=== PATIENT | female | born 1950 | race Caucasian/White ===

== ENCOUNTER → 2016-07-29 | Outpatient (CLI) | payer MEDICARE ==
[~2016-07-29] MED LIST: ALEN70TA2 PO; AMLO5TAB4 PO; ASP81TEC PO; CALC-80 PO; CARV3.12 PO; FISH1CAP15 PO; OLME1TAB22 PO; ROSU10TA PO; SMV20T PO
--- NOTE | 2016-07-30 09:26 | STRESS TEST ---
PROCEDURE PHYSICIAN: TARIQ RODRIGUEZ EXERCISE STRESS ECHOCARDIOGRAM REPORT DATE OF PROCEDURE: 07/29/2016 REFERRING PHYSICIAN: Dr. Almeida INDICATION FOR THE PROCEDURE: Shortness of breath on exertion Baseline heart rate is 63, baseline blood pressure: 163/78. Baseline EKG: Sinus rhythm with no ischemic changes. SUMMARY: The patient started exercising with a baseline heart rate, blood pressure and EKG mentioned above. She was able to exercise for a total of 5 minutes on standard [place] protocol, achieving maximum heart rate of 155, which is 99% of maximum expected heart rate. With peak exercise level, EKG was showing [address] depression in II, III, aVF, V4 and V5. Returned to baseline during recovery, occasional PVCs noted throughout test. At peak exercise level, blood pressure was 204/92. During recovery, heart rate EKG returned to baseline. Echocardiographic images were acquired and reviewed in the parasternal long axis, parasternal short axis, apical 4 chamber and apical 2 chamber views. Review of the images showed exercise-induced hypokinesia involving the basal to mid inferior wall and inferoposterior wall suggestive of mild ischemia. CONCLUSION: 1. Fair exercise tolerance a total of 5 minutes on standard [place] protocol. Total 7 METs achieving 99% of maximum expected heart rate. 2. Nondiagnostic EKG changes with exercise. Returned to baseline during recovery. 3. Occasional PVCs noted throughout test. 4. Severe hypertensive response to exercise. Returned to baseline during recovery. 5. Mild hypokinesia induced by exercise noted involving the basal to mid inferior wall and inferoposterior wall. 6. Overall test is considered moderately abnormal suggestive of ischemia. Job ID: [id number] Dictated Date: 07/29/2016 17:39:12 [employer] Program Coordinator Date: 07/30/2016 09:19:55 / rox
== END ==
LOC: CARD 13:36
PROVIDERS: ATTEND Internal Medicine Cardiovascular Disease
DX: R06.02 Shortness of breath (principal); I35.1 Nonrheumatic aortic (valve) insufficiency; I10 Essential (primary) hypertension; E78.2 Mixed hyperlipidemia; I27.2 Other secondary pulmonary hypertension; I65.23 Occlusion and stenosis of bilateral carotid arteries; R00.2 Palpitations

== ENCOUNTER 2016-08-19 06:54 | Day surgery (SDC) | payer MEDICARE ==
[~2016-08-19] VITALS: Ht 170.2 cm; Wt 71.7 kg
[2016-08-19] VITALS (10 sets, daily range): BP systolic 101–148; BP diastolic 56–79
[~2016-08-19 06:54] MED LIST changes: -ALEN70TA2 PO; -AMLO5TAB4 PO; -ROSU10TA PO
[2016-08-19] MEDS ORDERED: HEParin (CATH LAB) 2,000 ML IV ONE (07:26)
[2016-08-19] MEDS ORDERED: LIDOCAINE 1% INJ 20 ML (XYLOCAINE) VIAL ONE (07:26)
[2016-08-19] MEDS ORDERED: NS IV 1000 ML 1,000 ML ONE (07:26)
[2016-08-19] MEDS ORDERED: NS IV 1000 ML 1,000 ML IV SCH ×2 (07:37→09:13)
[2016-08-19 07:51] LABS: RED BLOOD COUNT 5.03 10^6/uL (4.35-5.85); RED CELL DISTRIBUTION WIDTH 14.5 % (10.0-14.5); WHITE BLOOD COUNT 7.7 10^3/uL (4.3-11.0)
[2016-08-19 07:53] LABS: BILIRUBIN,URINE NEGATIVE (NEGATIVE); KETONES,URINE NEGATIVE (NEGATIVE); LEUKOCYTE ESTERASE ,URINE 1+ (NEGATIVE); NITRITE,URINE NEGATIVE (NEGATIVE); PH,URINE 5 (5-9); PROTEIN,URINE 1+ (NEGATIVE); UROBILINOGEN,URINE NORMAL (NORMAL)
[2016-08-19] MEDS ORDERED: AMLO5TAB4 PO (07:57)
[2016-08-19] MEDS ORDERED: ROSU10TA PO (07:57)
[2016-08-19] MEDS ORDERED: ALEN70TA2 PO (08:00)
[2016-08-19 08:01] LABS: INR 0.9 (0.8-1.4); PROTHROMBIN TIME PATIENT 12.2 SEC (12.2-14.7)
--- NOTE | 2016-08-19 08:01 | Cardiac Procedure Note-CS/ASA ---
Pre-Procedure Note Pre-Op Procedure Note H&P Reviewed The H&P was reviewed, patient examined and no changes noted. Date H&P Reviewed: Aug 19, 2016 Time H&P Reviewed: 08:01 Conscious Sedation Pre-Proced Time Reviewed: 08: ASA Class: 3 Airway Mallampati Classification: ([place] appropriate class) I. II. III, IV Lungs Heart ASA score ASA 1: a normal healthy patient ASA 2: a patient with a mild systemic disease (mid diabetes, controlled hypertension, obesity x ASA 3: a patient with a severe systemic disease that limits activity (angina , COPD, prior Myocardial infarction) ASA 4: a patient with an incapacitating disease that is a constant threat to life (CHF, renal failure) ASA 5: a moribund patient not expected to survive 24 hrs. (ruptured aneurysm) ASA 6: a declared brain patient whose organs are being harvested. For emergent operations, add the letter E after the classification Grade 3 Sedation Plan: Analgesia, Amnesia, Plan communicated to team members, Discussed options with patient/fam, Discussed risks with patient/fam Note The patient is an appropriate candidate to undergo the planned procedure, sedation, and anesthesia. The patient immediately re-assessed prior to indication. TARIQ RODRIGUEZ MD Aug 19, 2016 08:01
[2016-08-19 08:09] LABS: ALANINE AMINOTRANSFERASE 23 U/L (0-55); ALBUMIN 4.5 G/DL (3.2-4.5); ANION GAP 10 MMOL/L (5-14); ASPARTATE AMINO TRANSFERASE 23 U/L (5-34); BILIRUBIN,TOTAL 0.8 MG/DL (0.1-1.0); BLOOD UREA NITROGEN 17 MG/DL (7-18); BUN/CREATININE RATIO 19; CALCIUM 9.4 MG/DL (8.5-10.1); CARBON DIOXIDE 25 MMOL/L (21-32); CHLORIDE 107 MMOL/L (98-107); CHOLESTEROL 167 MG/DL (< 200); CREATININE SERUM 0.88 MG/DL (0.60-1.30); DIRECT LDL 61 MG/DL (1-129); GFR ESTIMATED > 60; GLUCOSE 101 MG/DL (70-105); POTASSIUM 3.7 MMOL/L (3.6-5.0); SODIUM 142 MMOL/L (135-145); TOTAL PROTEIN 7.4 G/DL (6.4-8.2); TRIGLYCERIDES 69 MG/DL (<150); VLDL CHOLESTEROL 14 MG/DL (5-40)
--- NOTE | 2016-08-19 08:15 | Diagnostic Imaging Report ---
EXAMINATION: Portable erect AP chest obtained at 749h. INDICATION: Preop heart catheter The heart size is within normal limits and stable when compared to 07/07/16. The lungs are clear. There is no sign of failure, pneumonia or a pleural effusion to suggest an acute abnormality. The mediastinum is not widened. The osseous structures are intact. IMPRESSION: There is no evidence for an acute cardiopulmonary abnormality. Dictated by: Dictated on workstation # [id number]
[2016-08-19] MEDS ORDERED: fentaNYL INJECTION 100 MCG/2 ML AMP ONE (08:43)
[2016-08-19] MEDS ORDERED: MIDAZOLAM 5 MG/5 ML (VERSED) VIAL ONE (08:43)
[2016-08-19] MEDS ORDERED: PATIENT MAY USE OWN MEDS, ALL PO SCH (09:15)
--- NOTE | 2016-08-19 09:15 | Discharge Inst-Post CATH ---
Discharge Inst-CATH Post Cardiac Cath D/C Inst Follow Up/Plan Appointment with Dr Ye's office in 2-4 weeks CARDIAC CATH DISCHARGE INSTRUCTIONS *Hold Metformin for 48 hours post heart cath. ACTIVITY * Go Home directly and rest. * Limit activity of the leg (or wrist if it was used) for 7 days including aerobics, swimming, jogging, bicycling, etc. * Restrict stair-climbing for 7 days if possible, if not, climb up with your non -cath leg, then bring together on the same step. * Avoid lifting, pushing, pulling or excessive movement of the affected extremity for 7 days. * Customary sexual activity may be resumed after 2 days-use caution not to use a position that strains or causes pain to the affected extremity. * No driving for 24 hours. * NO SMOKING. * Avoid straining for bowel movements for 7 days. * Gentle walking on level ground is allowed. * Returning to work will depend on the type of procedure and the results. Your doctor will discuss this with you. CALL YOUR DOCTOR FOR ANY OF THE FOLLOWING: *If bleeding from the puncture site occurs- Apply gentle pressure to site with clean cloth and call your doctor or EMS. * If a knot or lump forms under the skin, increases in size, or causes pain. * If bruising appears to be worsening or moving further down your leg instead of disappearing. * Temperature above 101 F. CARE OF YOUR GROIN INCISION; * Bruising or purple discoloration of the skin near the puncture site is common. * You may shower only, no bathtub bathing for 5 days. Be careful to avoid slipping as your leg may feel stiff. * If a closure device was used on your femoral artery, please see the attached guide regarding care of the device and your leg. * REMOVE the dressing from your groin the next day after your procedure in the shower. CARE OF YOUR WRIST INCISION; * Bruising or purple discoloration of the skin near the puncture site is common. * You may shower. * DO NOT submerge wrist. * Remove dressing in 24 hours. TARIQ YE MD Aug 19, 2016 09:15
--- NOTE | 2016-08-19 14:04 | DISCHARGE SUMMARY ---
PROCEDURE PHYSICIAN: TARIQ RODRIGUEZ DATE OF PROCEDURE: 08/19/2016 REFERRING PHYSICIAN: Dr. Almeida BRIEF HISTORY: Mrs. Coyne is a 66-year-old lady with history of hypertension, has an abnormal stress test. She was scheduled for left heart catheterization, possible PTCA. PROCEDURE NOTE: After explaining the procedure to the patient, all pros and cons were explained. All questions were answered. The patient signed a consent, then she was placed on the cardiac catheterization laboratory. The right groin was prepped in a sterile fashion. Local anesthesia applied right groin. 6-Norwegian sheath was placed in the right femoral artery. Combination of right and left Donnie catheter were used to access the right and left coronary system. Multiple views were obtained. Pigtail catheter advanced to the left ventricular cavity. Pressure was measured. No left ventriculogram was done. At the end of the procedure, sheath was removed. Mynx device deployed. Hemostasis achieved. FINDINGS: HEMODYNAMICS: LV pressure 116/14, end-diastolic pressure of 14, aortic pressure 115/49, mean of 77. No significant gradient across the aortic valve. ANATOMY: 1. Left main coronary artery is bifurcating to left anterior descending and left circumflex artery with no obstructive disease. 2. Left anterior descending artery is moderate in size with no significant obstructive disease. Tapered down into smaller artery distally. 3. Left circumflex artery is moderate in size with no obstructive disease. 4. Right coronary artery is dominant artery with mild disease. No significant obstructive disease. 5. No left ventriculogram was done left ventricular end diastolic pressure is normal. CONCLUSION: 1. No significant obstructive coronary artery disease, mild disease in the distal LAD and right coronary artery. 2. Normal left ventricular end diastolic pressure. DISCUSSION AND RECOMMENDATION: Mrs. Coyne's abnormal stress test is probably due to extracardiac attenuation, medical therapy is recommended. FINAL DIAGNOSIS: 1. Hypertension. 2. Coronary artery disease. 3. Hyperlipidemia Job ID: [id number] Dictated Date: 08/19/2016 09:18:51 Development Executive Date: 08/19/2016 14:02:04/rox
== END 2016-08-19 13:52 | disposition home or self-care (01) ==
LOC: CATH 06:54 → SURG 09:37 → CATH 13:52
PROVIDERS: ATTEND Internal Medicine Cardiovascular Disease
DX: R94.39 Abnormal result of other cardiovascular function study (principal); I25.10 Atherosclerotic heart disease of native coronary artery without angina pectoris; I10 Essential (primary) hypertension; E78.5 Hyperlipidemia, unspecified; I27.2 Other secondary pulmonary hypertension; I35.1 Nonrheumatic aortic (valve) insufficiency; I65.23 Occlusion and stenosis of bilateral carotid arteries; Z79.899 Other long term (current) drug therapy
CPT/HCPCS: 36415; 71010; 80053; 80061; 81000; 85027; 85610; 85730; 87081; 93458

== ENCOUNTER → 2016-10-06 | Outpatient (CLI) | payer MEDICARE ==
[~2016-10-06] MED LIST changes: +ALEN70TA2 PO; +AMLO5TAB4 PO; +ROSU10TA PO
--- OUTSIDE RECORDS SUMMARY | 2016-10-06 09:45 | XMS REPORT | Continuity of Care Document ---
Author Author [facility] Organization [facility] Address Unknown Phone Unavailable Allergies Active Description Code Type Severity Reaction Onset Reported/Identified Relationship to Patient Clinical Status Yes No Known Drug Allergies [id number] Drug Allergy Unknown N/ A 08/24/2011 Medications Problems Date Dx Coded Attending Type Code Diagnosis Diagnosed By 12/31/2009 Ot 569.89 12/31/2009 Ot 618.04 12/31/2009 Ot V18.51 12/31/2009 Ot V76.51 10/04/2012 Ot 785.1 PALPITATIONS 10/04/2012 Ot 786.50 CHEST PAIN NOS 07/16/2014 MEHRAN COLLINS Ot 272.4 07/16/2014 MEHRAN COLLINS Ot 401.9 07/16/2014 MEHRAN COLLINS Ot 424.1 09/18/2014 Ot 396.3 09/18/2014 Ot 397.0 09/18/2014 Ot 272.4 09/18/2014 Ot 401.9 09/18/2014 Ot 424.1 09/18/2014 Ot V72.63 09/18/2014 Ot V72.81 09/18/2014 Ot V74.8 09/18/2014 Ot V76.12 09/18/2014 Ot 396.3 09/18/2014 Ot 397.0 09/18/2014 Ot 401.9 09/18/2014 Ot 396.3 09/18/2014 Ot 397.0 09/18/2014 Ot 401.9 09/18/2014 Ot 429.3 09/18/2014 Ot 793.81 09/18/2014 Ot V76.12 09/18/2014 Ot 793.89 09/18/2014 Ot 793.81 09/18/2014 Ot 793.81 09/18/2014 Ot 401.9 09/18/2014 Ot 424.1 09/18/2014 Ot 793.81 09/18/2014 Ot V15.89 09/18/2014 Ot V67.09 09/18/2014 Ot 785.1 09/18/2014 Ot 786.50 09/18/2014 JENNIFER PEREZ, TARIQ Gilbert Ot 272.4 09/18/2014 JENNIFER PEREZ, TARIQ Gilbert Ot 401.9 09/18/2014 JENNIFER PEREZ, TARIQ Gilbert Ot 416.8 09/18/2014 JENNIFER PEREZ, TARIQ Gilbert Ot 424.1 09/18/2014 JENNIFER PEREZ, TARIQ Gilbert Ot 785.1 09/18/2014 PRATIK PEREZ, RIAZ Hernandez Ot V76.12 09/18/2014 MEHRAN COLLINS Ot 272.4 09/18/2014 MEHRAN COLLINS Ot 401.9 09/18/2014 MEHRAN COLLINS Ot 424.1 06/26/2015 Ot 396.3 06/26/2015 Ot 397.0 06/26/2015 Ot 401.9 06/26/2015 Ot 396.3 06/26/2015 Ot 397.0 06/26/2015 Ot 401.9 06/26/2015 Ot 429.3 06/26/2015 Ot 793.81 06/26/2015 Ot V76.12 06/26/2015 Ot 793.89 06/26/2015 Ot 793.81 06/26/2015 Ot 793.81 06/26/2015 Ot 401.9 06/26/2015 Ot 424.1 06/26/2015 Ot 793.81 06/26/2015 Ot V15.89 06/26/2015 Ot V67.09 06/26/2015 Ot 785.1 06/26/2015 Ot 786.50 06/26/2015 JENNIFER PEREZ, TARIQ Gilbert Ot 272.4 06/26/2015 JENNIFER PEREZ, TARIQ Gilbert Ot 401.9 06/26/2015 JENNIFER PEREZ, TARIQ Gilbert Ot 416.8 06/26/2015 JENNIFER PEREZ, TARIQ Gilbert Ot 424.1 06/26/2015 JENNIFER PEREZ, TARIQ Gilbert Ot 785.1 06/26/2015 PRATIK PEREZ, RIAZ R Ot V76.12 06/26/2015 MEHRAN COLLINS Ot 272.4 06/26/2015 MEHRAN COLLINS Ot 401.9 06/26/2015 MEHRAN COLLINS Ot 424.1 06/26/2015 Ot V76.12 07/23/2015 JENNIFER PEREZ, TARIQ Gilbert Ot E78.5 07/23/2015 JENNIFER PEREZ, TARIQ Gilbert Ot I10 07/23/2015 JENNIFER PEREZ, TARIQ Gilbert Ot I35.1 07/29/2015 JENNIFER PEREZ, TARIQ Gilbert Ot E78.5 07/29/2015 JENNIFER PEREZ, TARIQ Gilbert Ot I10 07/29/2015 JENNIFER PEREZ, TARIQ Gilbert Ot I35.1 10/03/2015 Ot 396.3 10/03/2015 Ot 397.0 10/03/2015 Ot 401.9 10/03/2015 Ot 429.3 10/03/2015 Ot 793.81 10/03/2015 Ot V76.12 10/03/2015 Ot 793.89 10/03/2015 Ot 793.81 10/03/2015 Ot 793.81 10/03/2015 Ot 401.9 10/03/2015 Ot 424.1 10/03/2015 Ot 793.81 10/03/2015 Ot V15.89 10/03/2015 Ot V67.09 10/03/2015 Ot 785.1 10/03/2015 Ot 786.50 10/03/2015 JENNIFER PEREZ, TARIQ Gilbert Ot 272.4 10/03/2015 JENNIFER PEREZ, TARIQ Gilbert Ot 401.9 10/03/2015 JENNIFER PEREZ, TARIQ Gilbert Ot 416.8 10/03/2015 JENNIFER PEREZ, TARIQ Gilbert Ot 424.1 10/03/2015 JENNIFER PEREZ, TARIQ Gilbert Ot 785.1 10/03/2015 PRATIK PEREZ, RIAZ Hernandez Ot V76.12 10/03/2015 MEHRAN COLLINS Ot 272.4 10/03/2015 MEHRAN COLLINS Ot 401.9 10/03/2015 MEHRAN COLLINS Ot 424.1 10/03/2015 JENNIFER PEREZ, TARIQ Gilbert Ot E78.5 10/03/2015 JENNIFER PEREZ, TARIQ Gilbert Ot I10 10/03/2015 JENNIFER PEREZ, TARIQ Gilbert Ot I35.1 10/03/2015 Ot V76.12 10/11/2015 PRATIK PEREZ, RIAZ R Ot R92.8 10/29/2015 PRATIK PEREZ, RIAZ R Ot Z12.31 11/06/2015 PRATIK PEREZ, RIAZ R Ot R92.8 11/13/2015 Ot N63 UNSPECIFIED LUMP IN BREAST 11/13/2015 PRATIK PEREZ, RIAZ R Ot R92.8 OTH ABN AND INCONCLUSIVE FINDINGS ON DX 11/21/2015 Ot N63 UNSPECIFIED LUMP IN BREAST 04/10/2016 Ot 793.81 MAMMOGRAPHIC MICROCLACIFICATION 04/10/2016 Ot V76.12 OTH SCREEN MAMMO-MALIGN NEOPLASM OF ALEJANDRA 04/10/2016 Ot 793.89 OTH (ABN) FINDINGS ON RADIOLOGICAL EXAMI 04/10/2016 Ot 793.81 MAMMOGRAPHIC MICROCLACIFICATION 04/10/2016 Ot 793.81 MAMMOGRAPHIC MICROCLACIFICATION 04/10/2016 Ot 401.9 HYPERTENSION NOS 04/10/2016 Ot 424.1 AORTIC VALVE DISORDER 04/10/2016 Ot 793.81 MAMMOGRAPHIC MICROCLACIFICATION 04/10/2016 Ot V15.89 HX-HEALTH HAZARDS NEC 04/10/2016 Ot V67.09 SURGERY FOLLOW-UP, OTHER SURGERY 04/10/2016 Ot 785.1 PALPITATIONS 04/10/2016 Ot 786.50 CHEST PAIN NOS 04/10/2016 TARIQ RODRIGUEZ MD Ot 272.4 HYPERLIPIDEMIA NEC/NOS 04/10/2016 TARIQ RODRIGUEZ MD Ot 401.9 HYPERTENSION NOS 04/10/2016 TARIQ RODRIGUEZ MD Ot 416.8 CHR PULMON HEART DIS NEC 04/10/2016 TARIQ RODRIGUEZ MD Ot 424.1 AORTIC VALVE DISORDER 04/10/2016 TARIQ RODRIGUEZ MD Ot 785.1 PALPITATIONS 04/10/2016 PRATIK PEREZ, RIAZ R Ot V76.12 OTH SCREEN MAMMO-MALIGN NEOPLASM OF [place]A 04/10/2016 MEHRAN COLLINS Ot 272.4 HYPERLIPIDEMIA NEC/NOS 04/10/2016 MEHRAN COLLINS Ot 401.9 HYPERTENSION NOS 04/10/2016 MEHRAN COLLINS Ot 424.1 AORTIC VALVE DISORDER 04/10/2016 TARIQ RODRIGUEZ MD Ot E78.5 HYPERLIPIDEMIA, UNSPECIFIED 04/10/2016 TARIQ RODRIGUEZ MD Ot I10 ESSENTIAL (PRIMARY) HYPERTENSION 04/10/2016 TARIQ RODRIGUEZ MD Ot I35.1 NONRHEUMATIC AORTIC (VALVE) INSUFFICIENC 04/10/2016 Ot V76.12 OTH SCREEN MAMMO-MALIGN NEOPLASM OF [place] 04/10/2016 PRATIK PEREZ, RIAZ R Ot Z12.31 ENCNTR SCREEN MAMMOGRAM FOR MALIGNANT NE 04/10/2016 PRATIK PEREZ, RIAZ R Ot R92.8 OTH ABN AND INCONCLUSIVE FINDINGS ON DX 04/10/2016 Ot N63 UNSPECIFIED LUMP IN BREAST 04/10/2016 PRATIK PEREZ, RIAZ R Ot N63 UNSPECIFIED LUMP IN BREAST 04/10/2016 PRATIK PEREZ, RIAZ R Ot N63 UNSPECIFIED LUMP IN BREAST 04/13/2016 PRATIK PEREZ, RIAZ R Ot N63 UNSPECIFIED LUMP IN BREAST 04/14/2016 PRATIK PEREZ, RIAZ R Ot D24.2 BENIGN NEOPLASM OF LEFT BREAST 04/22/2016 PRATIK PEREZ, RIAZ R Ot D24.2 BENIGN NEOPLASM OF LEFT BREAST 06/30/2016 Ot 793.81 MAMMOGRAPHIC MICROCLACIFICATION 06/30/2016 Ot V76.12 OTH SCREEN MAMMO-MALIGN NEOPLASM OF [place]A 06/30/2016 Ot 793.89 OTH (ABN) FINDINGS ON RADIOLOGICAL EXAMI 06/30/2016 Ot 793.81 MAMMOGRAPHIC MICROCLACIFICATION 06/30/2016 Ot 793.81 MAMMOGRAPHIC MICROCLACIFICATION 06/30/2016 Ot 401.9 HYPERTENSION NOS 06/30/2016 Ot 424.1 AORTIC VALVE DISORDER 06/30/2016 Ot 793.81 MAMMOGRAPHIC MICROCLACIFICATION 06/30/2016 Ot V15.89 HX-HEALTH HAZARDS NEC 06/30/2016 Ot V67.09 SURGERY FOLLOW-UP, OTHER SURGERY 06/30/2016 Ot 785.1 PALPITATIONS 06/30/2016 Ot 786.50 CHEST PAIN NOS 06/30/2016 TARIQ RODRIGUEZ MD Ot 272.4 HYPERLIPIDEMIA NEC/NOS 06/30/2016 TARIQ RODRIGUEZ MD Ot 401.9 HYPERTENSION NOS 06/30/2016 TARIQ RODRIGUEZ MD Ot 416.8 CHR PULMON HEART DIS NEC 06/30/2016 TARIQ RODRIGUEZ MD Ot 424.1 AORTIC VALVE DISORDER 06/30/2016 TARIQ RODRIGUEZ MD Ot 785.1 PALPITATIONS 06/30/2016 RIAZ CHRISTIE MD Ot V76.12 OTH SCREEN MAMMO-MALIGN NEOPLASM OF [place] 06/30/2016 MEHRAN COLLINS Ot 272.4 HYPERLIPIDEMIA NEC/NOS 06/30/2016 MEHRAN COLLINS Ot 401.9 HYPERTENSION NOS 06/30/2016 MEHRAN COLLINS Ot 424.1 AORTIC VALVE DISORDER 06/30/2016 TARIQ RODRIGUEZ MD Ot E78.5 HYPERLIPIDEMIA, UNSPECIFIED 06/30/2016 TARIQ RODRIGUEZ MD Ot I10 ESSENTIAL (PRIMARY) HYPERTENSION 06/30/2016 TARIQ RODRIGUEZ MD Ot I35.1 NONRHEUMATIC AORTIC (VALVE) INSUFFICIENC 06/30/2016 Ot V76.12 OTH SCREEN MAMMO-MALIGN NEOPLASM OF [place] 06/30/2016 RIAZ CHRISTIE MD Ot Z12.31 ENCNTR SCREEN MAMMOGRAM FOR MALIGNANT NE 06/30/2016 RIAZ CHRISTIE MD Ot R92.8 OTH ABN AND INCONCLUSIVE FINDINGS ON DX 06/30/2016 Ot N63 UNSPECIFIED LUMP IN BREAST 06/30/2016 RIAZ CHRISTIE MD Ot D24.2 BENIGN NEOPLASM OF LEFT BREAST 07/01/2016 MEHRAN COLLINS Ot I35.1 NONRHEUMATIC AORTIC (VALVE) INSUFFICIENC 07/01/2016 MEHRAN COLLINS Ot I35.1 NONRHEUMATIC AORTIC (VALVE) INSUFFICIENC 07/06/2016 MEHRAN COLLINS Ot I35.1 NONRHEUMATIC AORTIC (VALVE) INSUFFICIENC 07/08/2016 TARIQ RODRIGUEZ MD Ot E78.2 MIXED HYPERLIPIDEMIA 07/08/2016 TARIQ RODRIGUEZ MD Ot I10 ESSENTIAL (PRIMARY) HYPERTENSION 07/08/2016 TARIQ RODRIGUEZ MD Ot I27.2 OTHER SECONDARY PULMONARY HYPERTENSION 07/08/2016 TARIQ RODRIGUEZ MD Ot I35.1 NONRHEUMATIC AORTIC (VALVE) INSUFFICIENC 07/08/2016 TARIQ RODRIGUEZ MD Ot I65.23 OCCLUSION AND STENOSIS OF BILATERAL [place]ASILVA 07/08/2016 TARIQ RODRIGUEZ MD Ot R00.2 PALPITATIONS 07/08/2016 TARIQ RODRIGUEZ MD Ot R06.02 SHORTNESS OF BREATH 07/08/2016 TARIQ RODRIGUEZ MD Ot E78.2 MIXED HYPERLIPIDEMIA 07/08/2016 TARIQ RODRIGUEZ MD Ot I10 ESSENTIAL (PRIMARY) HYPERTENSION 07/08/2016 TARIQ RODRIGUEZ MD Ot I27.2 OTHER SECONDARY PULMONARY HYPERTENSION 07/08/2016 TARIQ RODRIGUEZ MD Ot I35.1 NONRHEUMATIC AORTIC (VALVE) INSUFFICIENC 07/08/2016 TARIQ RODRIGUEZ MD Ot I65.23 OCCLUSION AND STENOSIS OF BILATERAL [place] 07/08/2016 TARIQ RODRIGUEZ MD Ot R00.2 PALPITATIONS 07/08/2016 TARIQ RODRIGUEZ MD Ot R06.02 SHORTNESS OF BREATH 07/23/2016 MEHRAN COLLINS Ot I35.1 NONRHEUMATIC AORTIC (VALVE) INSUFFICIENC 07/24/2016 TARIQ RODRIGUEZ MD Ot E78.2 MIXED HYPERLIPIDEMIA 07/24/2016 TARIQ RODRIGUEZ MD Ot I10 ESSENTIAL (PRIMARY) HYPERTENSION 07/24/2016 TARIQ RODRIGUEZ MD Ot I27.2 OTHER SECONDARY PULMONARY HYPERTENSION 07/24/2016 TARIQ RODRIGUEZ MD Ot I35.1 NONRHEUMATIC AORTIC (VALVE) INSUFFICIENC 07/24/2016 TARIQ RODRIGUEZ MD Ot I65.23 OCCLUSION AND STENOSIS OF BILATERAL [place] 07/24/2016 TARIQ RODRIGUEZ MD Ot R00.2 PALPITATIONS 07/24/2016 TARIQ RODRIGUEZ MD Ot R06.02 SHORTNESS OF BREATH 07/28/2016 TARIQ RODRIGUEZ MD Ot E78.2 MIXED HYPERLIPIDEMIA 07/28/2016 TARIQ RODRIGUEZ MD Ot I10 ESSENTIAL (PRIMARY) HYPERTENSION 07/28/2016 TARIQ RODRIGUEZ MD Ot I27.2 OTHER SECONDARY PULMONARY HYPERTENSION 07/28/2016 TARIQ RODRIGUEZ MD Ot I35.1 NONRHEUMATIC AORTIC (VALVE) INSUFFICIENC 07/28/2016 TARIQ RODRIGUEZ MD Ot I65.23 OCCLUSION AND STENOSIS OF BILATERAL [place] 07/28/2016 TARIQ RODRIGUEZ MD Ot R00.2 PALPITATIONS 07/28/2016 TARIQ RODRIGUEZ MD Ot R06.02 SHORTNESS OF BREATH 07/30/2016 MEHRAN COLLINS Ot I35.1 NONRHEUMATIC AORTIC (VALVE) INSUFFICIENC 07/30/2016 TARIQ RODRIGUEZ MD Ot E78.2 MIXED HYPERLIPIDEMIA 07/30/2016 TARIQ RODRIGUEZ MD Ot I10 ESSENTIAL (PRIMARY) HYPERTENSION 07/30/2016 TARIQ RODRIGUEZ MD Ot I27.2 OTHER SECONDARY PULMONARY HYPERTENSION 07/30/2016 TARIQ RODRIGUEZ MD Ot I35.1 NONRHEUMATIC AORTIC (VALVE) INSUFFICIENC 07/30/2016 TARIQ RODRIGUEZ MD Ot I65.23 OCCLUSION AND STENOSIS OF BILATERAL [place] 07/30/2016 TARIQ RODRIGUEZ MD Ot R00.2 PALPITATIONS 07/30/2016 TARIQ RODRIGUEZ MD Ot R06.02 SHORTNESS OF BREATH 07/30/2016 TARIQ RODRIGUEZ MD Ot E78.2 MIXED HYPERLIPIDEMIA 07/30/2016 TARIQ RODRIGUEZ MD Ot I10 ESSENTIAL (PRIMARY) HYPERTENSION 07/30/2016 TARIQ RODRIGUEZ MD Ot I27.2 OTHER SECONDARY PULMONARY HYPERTENSION 07/30/2016 TARIQ RODRIGUEZ MD Ot I35.1 NONRHEUMATIC AORTIC (VALVE) INSUFFICIENC 07/30/2016 TARIQ RODRIGUEZ MD Ot I65.23 OCCLUSION AND STENOSIS OF BILATERAL [place] 07/30/2016 TARIQ RODRIGUEZ MD Ot R00.2 PALPITATIONS 07/30/2016 TARIQ RODRIGUEZ MD Ot R06.02 SHORTNESS OF BREATH 07/31/2016 TARIQ RODRIGUEZ MD Ot E78.2 MIXED HYPERLIPIDEMIA 07/31/2016 TARIQ RODRIGUEZ MD Ot I10 ESSENTIAL (PRIMARY) HYPERTENSION 07/31/2016 TARIQ RODRIGUEZ MD Ot I27.2 OTHER SECONDARY PULMONARY HYPERTENSION 07/31/2016 TARIQ RODRIGUEZ MD Ot I35.1 NONRHEUMATIC AORTIC (VALVE) INSUFFICIENC 07/31/2016 TARIQ RODRIGUEZ MD Ot I65.23 OCCLUSION AND STENOSIS OF BILATERAL [place] 07/31/2016 TARIQ RODRIGUEZ MD Ot R00.2 PALPITATIONS 07/31/2016 TARIQ RODRIGUEZ MD Ot R06.02 SHORTNESS OF BREATH 08/03/2016 TARIQ RODRIGUEZ MD Ot E78.2 MIXED HYPERLIPIDEMIA 08/03/2016 TARIQ RODRIGUEZ MD Ot I10 ESSENTIAL (PRIMARY) HYPERTENSION 08/03/2016 TARIQ RODRIGUEZ MD Ot I27.2 OTHER SECONDARY PULMONARY HYPERTENSION 08/03/2016 TARIQ RODRIGUEZ MD Ot I35.1 NONRHEUMATIC AORTIC (VALVE) INSUFFICIENC 08/03/2016 TARIQ RODRIGUEZ MD Ot I65.23 OCCLUSION AND STENOSIS OF BILATERAL [place] 08/03/2016 TARIQ RODRIGUEZ MD Ot R00.2 PALPITATIONS 08/03/2016 TARIQ RODRIGUEZ MD Ot R06.02 SHORTNESS OF BREATH 08/05/2016 TARIQ RODRIGUEZ MD Ot E78.2 MIXED HYPERLIPIDEMIA 08/05/2016 TARIQ RODRIGUEZ MD Ot I10 ESSENTIAL (PRIMARY) HYPERTENSION 08/05/2016 TARIQ RODRIGUEZ MD Ot I27.2 OTHER SECONDARY PULMONARY HYPERTENSION 08/05/2016 TARIQ RODRIGUEZ MD Ot I35.1 NONRHEUMATIC AORTIC (VALVE) INSUFFICIENC 08/05/2016 TARIQ RODRIGUEZ MD Ot I65.23 OCCLUSION AND STENOSIS OF BILATERAL [place] 08/05/2016 TARIQ RODRIGUEZ MD Ot R00.2 PALPITATIONS 08/05/2016 TARIQ RODRIGUEZ MD Ot R06.02 SHORTNESS OF BREATH 08/17/2016 TARIQ RODRIGUEZ MD Ot E78.2 MIXED HYPERLIPIDEMIA 08/17/2016 TARIQ RODRIGUEZ MD Ot I10 ESSENTIAL (PRIMARY) HYPERTENSION 08/17/2016 TARIQ RODRIGUEZ MD Ot I27.2 OTHER SECONDARY PULMONARY HYPERTENSION 08/17/2016 TARIQ RODRIGUEZ MD Ot I35.1 NONRHEUMATIC AORTIC (VALVE) INSUFFICIENC 08/17/2016 TARIQ RODRIGUEZ MD Ot I65.23 OCCLUSION AND STENOSIS OF BILATERAL [place] 08/17/2016 TARIQ RODRIGUEZ MD Ot R00.2 PALPITATIONS 08/17/2016 TARIQ RODRIGUEZ MD Ot R06.02 SHORTNESS OF BREATH 08/19/2016 TARIQ RODRIGUEZ MD Ot E78.5 HYPERLIPIDEMIA, UNSPECIFIED 08/19/2016 TARIQ RODRIGUEZ MD Ot I10 ESSENTIAL (PRIMARY) HYPERTENSION 08/19/2016 TARIQ RODRIGUEZ MD Ot I25.10 ATHSCL HEART DISEASE OF [place] CORONARY 08/19/2016 TARIQ RODRIGUEZ MD Ot I27.2 OTHER SECONDARY PULMONARY HYPERTENSION 08/19/2016 TARIQ RODRIGUEZ MD Ot I35.1 NONRHEUMATIC AORTIC (VALVE) INSUFFICIENC 08/19/2016 TARIQ RODRIGUEZ MD Ot I65.23 OCCLUSION AND STENOSIS OF BILATERAL [place] 08/19/2016 TARIQ RODRIGUEZ MD Ot R94.39 ABNORMAL RESULT OF OTHER CARDIOVASCULAR 08/19/2016 TARIQ RODRIGUEZ MD Ot Z79.899 OTHER CARE HOME (CURRENT) DRUG THERAPY 08/19/2016 TARIQ RODRIGUEZ MD Ot E78.2 MIXED HYPERLIPIDEMIA 08/19/2016 TARIQ RODRIGUEZ MD Ot I10 ESSENTIAL (PRIMARY) HYPERTENSION 08/19/2016 TARIQ RODRIGUEZ MD Ot I27.2 OTHER SECONDARY PULMONARY HYPERTENSION 08/19/2016 TARIQ RODRIGUEZ MD Ot I35.1 NONRHEUMATIC AORTIC (VALVE) INSUFFICIENC 08/19/2016 TARIQ RODRIGUEZ MD Ot I65.23 OCCLUSION AND STENOSIS OF BILATERAL [place] 08/19/2016 TARIQ RODRIGUEZ MD Ot R00.2 PALPITATIONS 08/19/2016 TARIQ RODRIGUEZ MD Ot R06.02 SHORTNESS OF BREATH 08/27/2016 TARIQ RODRIGUEZ MD Ot E78.2 MIXED HYPERLIPIDEMIA 08/27/2016 TARIQ RODRIGUEZ MD Ot I10 ESSENTIAL (PRIMARY) HYPERTENSION 08/27/2016 TARIQ RODRIGUEZ MD Ot I27.2 OTHER SECONDARY PULMONARY HYPERTENSION 08/27/2016 TARIQ RODRIGUEZ MD Ot I35.1 NONRHEUMATIC AORTIC (VALVE) INSUFFICIENC 08/27/2016 TARIQ RODRIGUEZ MD Ot I65.23 OCCLUSION AND STENOSIS OF BILATERAL [place] 08/27/2016 TARIQ RODRIGUEZ MD Ot R00.2 PALPITATIONS 08/27/2016 TARIQ RODRIGUEZ MD Ot R06.02 SHORTNESS OF BREATH 09/02/2016 TARIQ RODRIGUEZ MD Ot E78.2 MIXED HYPERLIPIDEMIA 09/02/2016 TARIQ RODRIGUEZ MD Ot I10 ESSENTIAL (PRIMARY) HYPERTENSION 09/02/2016 TARIQ RODRIGUEZ MD Ot I27.2 OTHER SECONDARY PULMONARY HYPERTENSION 09/02/2016 TARIQ RODRIGUEZ MD Ot I35.1 NONRHEUMATIC AORTIC (VALVE) INSUFFICIENC 09/02/2016 TARIQ RODRIGUEZ MD, Ot I65.23 OCCLUSION AND STENOSIS OF BILATERAL [place] 09/02/2016 TARIQ RODRIGUEZ MD Ot R00.2 PALPITATIONS 09/02/2016 TARIQ RODRIGUEZ MD Ot R06.02 SHORTNESS OF BREATH 09/02/2016 TARIQ RODRIGUEZ MD Ot E78.5 HYPERLIPIDEMIA, UNSPECIFIED 09/02/2016 TARIQ RODRIGUEZ MD Ot I10 ESSENTIAL (PRIMARY) HYPERTENSION 09/02/2016 TARIQ RODRIGUEZ MD Ot I25.10 ATHSCL HEART DISEASE OF [place] CORONARY 09/02/2016 TARIQ RODRIGUEZ MD Ot I27.2 OTHER SECONDARY PULMONARY HYPERTENSION 09/02/2016 TARIQ RODRIGUEZ MD Ot I35.1 NONRHEUMATIC AORTIC (VALVE) INSUFFICIENC 09/02/2016 TARIQ RODRIGUEZ MD Ot I65.23 OCCLUSION AND STENOSIS OF BILATERAL [place] 09/02/2016 TARIQ RODRIGUEZ MD Ot R94.39 ABNORMAL RESULT OF OTHER CARDIOVASCULAR 09/02/2016 TARIQ RODRIGUEZ MD, Ot Z79.899 OTHER CARE HOME (CURRENT) DRUG THERAPY Procedures Results Test Result Range Automated blood complete blood count (hemogram) panel - 08/19/16 07:40 Blood leukocytes automated count (number/volume) 7.7 10*3/ uL 4.3-11.0 Blood erythrocytes automated count (number/volume) 5.03 10*6 /uL 4.35-5.85 Venous blood hemoglobin measurement (mass/volume) 15.1 g/dL 11.5-16.0 Blood hematocrit (volume fraction) 45 % 35-52 Automated erythrocyte mean corpuscular volume 90 [foz_us] 80-99 Automated erythrocyte mean corpuscular hemoglobin (mass per erythrocyte) 30 pg 25-34 Automated erythrocyte mean corpuscular hemoglobin concentration measurement ( mass/volume) 33 g/dL 32-36 Automated erythrocyte distribution width ratio 14.5 % 10.0-14.5 Automated blood platelet count (count/volume) 213 10*3/uL 130-400 Automated blood platelet mean volume measurement 11.0 [foz_ us] 7.4-10.4 PT panel in platelet poor plasma by coagulation assay - 08/19/16 07:40 Prothrombin time (PT) in platelet poor plasma by coagulation assay 12.2 s 12.2-14.7 INR in platelet poor plasma or blood by coagulation assay 0.9 0.8-1.4 Activated partial thromboplastin time (aPTT) in platelet poor plasma bycoagulation assay - 08/19/16 07:40 Activated partial thromboplastin time (aPTT) in platelet poor plasma bycoagulation assay 28 s 24-35 Complete urinalysis with reflex to culture - 08/19/16 07:40 Urine color determination YELLOW NRG Urine clarity determination CLEAR NRG Urine pH measurement by test strip 5 5- 9 Specific gravity of urine by test strip 1.025 1.016-1.022 Urine protein assay by test strip, semi-quantitative 1+ NEGATIVE Urine glucose detection by automated test strip NEGATIVE NEGATIVE Erythrocytes detection in urine sediment by light microscopy 4+ NEGATIVE Urine ketones detection by automated test strip NEGATIVE NEGATIVE Urine nitrite detection by test strip NEGATIVE NEGATIVE Urine total bilirubin detection by test strip NEGATIVE NEGATIVE Urine urobilinogen measurement by automated test strip (mass/volume) NORMAL NORMAL Urine leukocyte esterase detection by dipstick 1+ NEGATIVE Automated urine sediment erythrocyte count by microscopy (number/high power field) [HPF] NRG Automated urine sediment leukocyte count by microscopy (number/high power field ) [HPF] NRG Bacteria detection in urine sediment by light microscopy FEW NRG Squamous epithelial cells detection in urine sediment by light microscopy 2-5 NRG Crystals detection in urine sediment by light microscopy NONE NRG Casts detection in urine sediment by light microscopy NONE NRG Mucus detection in urine sediment by light microscopy SMALL NRG Complete urinalysis with reflex to culture NO NRG Comprehensive metabolic panel - 08/19/16 07:40 Serum or plasma sodium measurement (moles/volume) 142 mmol/ L 135-145 Serum or plasma potassium measurement (moles/volume) 3.7 mmol/L 3.6-5.0 Serum or plasma chloride measurement (moles/volume) 107 mmol /L 98-107 Carbon dioxide 25 mmol/L 21-32 Serum or plasma anion gap determination (moles/volume) 10 mmol/L 5-14 Serum or plasma urea nitrogen measurement (mass/volume) 17 mg/dL 7-18 Serum or plasma creatinine measurement (mass/volume) 0.88 mg /dL 0.60-1.30 Serum or plasma urea nitrogen/creatinine mass ratio 19 NRG Serum or plasma creatinine measurement with calculation of estimated glomerular filtration rate > NRG Serum or plasma glucose measurement (mass/volume) 101 mg/dL 70-105 Serum or plasma calcium measurement (mass/volume) 9.4 mg/dL 8.5-10.1 Serum or plasma total bilirubin measurement (mass/volume) 0.8 mg/dL 0.1-1.0 Serum or plasma alkaline phosphatase measurement (enzymatic activity/volume) 73 U/L 40-136 Serum or plasma aspartate aminotransferase measurement (enzymatic activity/ volume) 23 U/L 5-34 Serum or plasma alanine aminotransferase measurement (enzymatic activity/volume ) 23 U/L 0-55 Serum or plasma protein measurement (mass/volume) 7.4 g/dL 6.4-8.2 Serum or plasma albumin measurement (mass/volume) 4.5 g/dL 3.2-4.5 Lipid 1996 panel - 08/19/16 07:40 Serum or plasma triglyceride measurement (mass/volume) 69 mg /dL <150 Serum or plasma cholesterol measurement (mass/volume) 167 mg /dL < 200 Serum or plasma cholesterol in HDL measurement (mass/volume) 82 mg/dL 40-60 Cholesterol in LDL [mass/volume] in serum or plasma by direct assay 61 mg/dL 1-129 Serum or plasma cholesterol in VLDL measurement (mass/volume) 14 mg/dL 5-40 Methicillin resistant Staphylococcus aureus (MRSA) screening culture - 07:40 Methicillin resistant Staphylococcus aureus (MRSA) screening culture NEG NRG Encounters ACCT No. Visit Date/Time Discharge Status Pt. Type Provider Facility Loc./Unit Complaint [id number] 08/19/2016 06:54:00 2016 13:52:00 DIS Outpatient TARIQ RODRIGUEZ MD [facility] CATH ABNORMAL STRESS ECHO,HLP,HTN,AR,MR,TR [id number] 06/26/2015 08:04:00 2014 23:59:59 CLS Outpatient TARIQ RODRIGUEZ MD [facility] CARD AR,HTN,HLP,MEERA [id number] 06/26/2014 07:54:00 2013 23:59:59 CLS Outpatient MEHRAN COLLINS [facility] CARD AR,CARTOID ARTERY STENOSIS, HTN,HLP [id number] 10/26/2013 08:43:00 2013 23:59:59 CLS Outpatient TARIQ RODRIGUEZ MD [facility] CARD AR, CAROTID STENOSIS,HTN,HLP [id number] 09/14/2013 07:21:00 2013 23:59:59 CLS Outpatient RIAZ CHRISTIE MD [facility] RAD SCREENING [id number] 07/29/2016 13:36:00 ACT Outpatient TARIQ RODRIGUEZ MD [facility] CARD SOB ON EXERTION [id number] 07/22/2016 06:58:00 ACT Outpatient TARIQ RODRIGUEZ MD [facility] RT SOB ON EXERTION [id number] 07/07/2016 14:52:00 ACT Outpatient TARIQ RODRIGUEZ MD [facility] RAD SHORTNESS OF BREATH ON EXERTION,AR,HTN [id number] 06/30/2016 07:37:00 ACT Outpatient MEHRAN SANDHU [facility] CARD AR [id number] 04/10/2016 10:00:00 ACT Outpatient RIAZ CHRISTIE MD [facility] RAD F/U BREAST BIOPSY [id number] 10/24/2015 13:17:00 Document Registration [id number] 10/11/2015 08:02:00 ACT Outpatient RIAZ CHRISTIE MD [facility] RAD ABNORMAL MAMMO [id number] 10/03/2015 11:18:00 ACT Outpatient RIAZ CHRISTIE MD [facility] RAD SCREENING [id number] 09/18/2014 15:37:00 Document Registration [id number] 06/26/2014 07:56:00 Document Registration [id number] 10/05/2012 08:00:00 Document Registration [id number] 09/16/2012 08:24:00 Document Registration [id number] 07/06/2012 07:53:00 Document Registration [id number] 03/09/2012 07:33:00 Document Registration [id number] 09/10/2011 08:23:00 Document Registration [id number] 08/24/2011 08:45:00 Document Registration [id number] 08/19/2011 09:29:00 Document Registration [id number] 02/02/2011 15:14:00 Document Registration [id number] 01/15/2011 07:16:00 Document Registration [id number] 09/11/2010 08:54:00 Document Registration [id number] 03/18/2010 08:20:00 Document Registration [id number] 12/31/2009 07:03:00 Document Registration [id number] 12/05/2009 08:09:00 Document Registration [id number] 07/09/2009 07:49:00 Document Registration [id number] 07/01/2009 09:18:00 Document Registration
--- NOTE | 2016-10-08 19:22 | Diagnostic Imaging Report ---
Bilateral screening mammogram The current study was also evaluated with a Computer Aided Detection (CAD) system. Indication: Screening. No current complaints stated on the questionnaire. COMPARISON: 04/10/16. FINDINGS: The breasts are composed of dense parenchyma which may decrease mammographic sensitivity. There are benign-appearing calcifications seen and a biopsy clip is also noted in the central aspect of the left breast. Allowing for technique and positional differences, no suspicious change is seen. IMPRESSION: Dense breasts with no definite change. ACR BI-RADS Category 2: Benign findings. Result letter will be mailed to the patient. Note: At least 10% of breast cancer is not imaged by mammography. Dictated by: Dictated on workstation # [id number]
== END ==
LOC: RAD 09:40
PROVIDERS: ATTEND Family Medicine
DX: Z12.31 Encounter for screening mammogram for malignant neoplasm of breast (principal)
CPT/HCPCS: 77067

== ENCOUNTER → 2017-10-28 | Outpatient (CLI) | payer MEDICARE ==
--- NOTE | 2017-10-28 20:13 | Diagnostic Imaging Report ---
EXAMINATION: DEXA scan. INDICATION: Screening for osteoporosis. The bone mineral density of the hips and spine was measured. FINDINGS: The report from the previous exam of 12/05/2009 noted that the T-score for the spine was 0.2. On this exam, the T-score is 0.6. The T-score for each hip joint on this study is -1.6. Previously, the T-scores were -1.5 on the right and -1.3 on the left. IMPRESSION: 1. There has been a slight increase in the bone mineral density of the spine. The T-score remains within normal limits. 2. Conversely, there has been a slight decrease in the bone mineral density of each hip. These T-scores values still fall within the range of osteopenia. Dictated by: Dictated on workstation # [id number]
--- NOTE | 2017-10-29 08:52 | Diagnostic Imaging Report ---
Digital mammogram bilateral screening This study was compared to the prior exam of 10/06/2016, 04/10/2016 and 10/03/2015. At this time, there are no current complaints. The current study was also evaluated with a Computer Aided Detection (CAD) system. FINDINGS: The fibroglandular tissue in both breasts is heterogeneously dense. This does limit the sensitivity of this exam. Overall, there does not appear to have been any significant change when compared to the prior study. No primary or secondary sign of malignancy is noted. Stereotactic clip in the left breast seen previously is again evident. IMPRESSION: There is no radiographic evidence for malignancy. ACR BI-RADS Category 1: Negative. Result letter will be mailed to the patient. Note: At least 10% of breast cancer is not imaged by mammography. Dictated on workstation # [id number]
== END ==
LOC: RAD 10:14
PROVIDERS: ATTEND Family Medicine
DX: Z12.31 Encounter for screening mammogram for malignant neoplasm of breast (principal); Z13.820 Encounter for screening for osteoporosis; M85.88 Other specified disorders of bone density and structure, other site
CPT/HCPCS: 77067; 77080

== ENCOUNTER → 2018-04-13 | Outpatient (CLI) | payer MEDICARE | LOC: CARD 10:36 | PROVIDERS: ATTEND Physician Assistant | DX: I08.3 Combined rheumatic disorders of mitral, aortic and tricuspid valves (principal); I10 Essential (primary) hypertension; E78.5 Hyperlipidemia, unspecified | CPT/HCPCS: 93306 ==

== ENCOUNTER → 2018-11-04 | Outpatient (CLI) | payer MEDICARE ==
[~2018-11-04] MED LIST changes: -ROSU10TA PO; +ROSU10TA22 PO
--- NOTE | 2018-11-04 19:19 | Diagnostic Imaging Report ---
INDICATION: Screening. The current study was also evaluated with a Computer Aided Detection (CAD) system. Comparison made with prior examination from 10/28/2017 back through 03/09/2012. 3D tomosynthesis was performed and reviewed. FINDINGS: The fibroglandular tissue is heterogeneously dense bilaterally. There is some slight increased parenchymal density in the region of the biopsy clip on the left. This likely reflects some scar formation. There are a few benign-type calcifications. There is no new dominant mass, spiculated lesion, or suspicious calcification identified. The skin, nipples, and axillae are unremarkable. IMPRESSION: Benign. ACR BI-RADS Category 2: Benign findings. Result letter will be mailed to the patient. Note: At least 10% of breast cancer is not imaged by mammography. Dictated by: Dictated on workstation # [id number]
== END ==
LOC: RAD 09:03
PROVIDERS: ATTEND Family Medicine
DX: Z12.31 Encounter for screening mammogram for malignant neoplasm of breast (principal)
CPT/HCPCS: 77067

== ENCOUNTER → 2019-11-27 | Outpatient (CLI) | payer MEDICARE | LOC: CARD 11:46 | PROVIDERS: ATTEND Physician Assistant | DX: I08.3 Combined rheumatic disorders of mitral, aortic and tricuspid valves (principal); I65.29 Occlusion and stenosis of unspecified carotid artery; I10 Essential (primary) hypertension; E78.5 Hyperlipidemia, unspecified | CPT/HCPCS: 93306 ==

== ENCOUNTER → 2020-01-30 | Outpatient (CLI) | payer MEDICARE ==
--- NOTE | 2020-01-30 16:57 | Diagnostic Imaging Report ---
PROCEDURE: US Non-ob pelvis comp/trans. TECHNIQUE: Multiple Real-time grayscale images were obtained of the pelvis in various projections endovaginally. Transabdominal imaging was also performed. INDICATION: Pelvic fullness. FINDINGS: The uterus measures 5.3 x 5.2 x 3 cm. The endometrial stripe is 8 mm. There is a large cystic structure in the right adnexal region measuring upwards of 18 cm x 10 cm. The ovaries are not identified separately and are likely atrophic. There is no free fluid. IMPRESSION: Large cyst filling the pelvis. In this age group, cyst adenocarcinoma would be of concern. I would recommend a followup CT abdomen and pelvis with oral and IV contrast for further evaluation. Dictated by: Dictated on workstation # [id number]
== END ==
LOC: RAD 14:28
PROVIDERS: ATTEND Family Medicine
DX: N94.89 Other specified conditions associated with female genital organs and menstrual cycle (principal)
CPT/HCPCS: 76830; 76856

== ENCOUNTER → 2020-02-01 | Outpatient (CLI) | payer MEDICARE ==
[~2020-02-01] MED LIST changes: +BARIUM SUSPENSION 2.1% (VANILLA SILQ) 450 ML PO ONE; +CATHETER FLUSH 10 ML SYR IV PRN; +HOLD METFORMIN - RECEIVED CONTRAST 20 ML VIAL IV SCH; +IOHEXOL 350 MG/ML 100 ML (OMNIPAQUE 350) VIAL IV ONE; +NS 100 ML (IVPB) BAG IV ONE
--- NOTE | 2020-02-01 11:24 | Diagnostic Imaging Report ---
PROCEDURE: CT abdomen and pelvis with contrast. TECHNIQUE: Multiple contiguous axial images were obtained through the abdomen and pelvis after administration of intravenous contrast. Auto Exposure Controls were utilized during the CT exam to meet ALARA standards for radiation dose reduction. INDICATION: Pelvic cyst. Correlation is made with pelvic ultrasound performed 01/30/2020. The lung bases are clear. The liver does demonstrate generalized low density suggestive of hepatic steatosis. No discrete liver mass is detected. Gallbladder is unremarkable. No biliary ductal dilatation is seen. The pancreas and spleen are unremarkable. No adrenal mass is detected. Kidneys are unremarkable. Aorta is nonaneurysmal. Bowel loops are normal caliber. There is no obstruction. There is a large cystic mass identified in the midline of the lower abdomen and pelvis. This measures 16.9 cm AP by 13.7 cm transverse by 17.8 cm cephalocaudal. This is located cephalad to the urinary bladder. This appears to be separate from the uterus which is displaced to the left and slightly posterior. No significant nodularity or septation within the cystic mass is identified. Ovaries are not definitely visualized on CT. No free fluid detected. No definite abdominal or pelvic lymphadenopathy is identified. No definite omental caking or peritoneal nodularity is seen. IMPRESSION: 1. Large cystic mass lower abdomen and pelvis midline, as described. This is likely ovarian in etiology. Cystadenoma or cystadenocarcinoma would be the primary consideration. No other significant abnormality is detected. Dictated by: Dictated on workstation # [id number]
== END ==
LOC: RAD 09:33
PROVIDERS: ATTEND Family Medicine
DX: N94.89 Other specified conditions associated with female genital organs and menstrual cycle (principal)
CPT/HCPCS: 74177

== ENCOUNTER → 2020-02-27 | Outpatient (CLI) | payer MEDICARE ==
[~2020-02-27] MED LIST changes: -BARIUM SUSPENSION 2.1% (VANILLA SILQ) 450 ML PO ONE; -CATHETER FLUSH 10 ML SYR IV PRN; -HOLD METFORMIN - RECEIVED CONTRAST 20 ML VIAL IV SCH; -IOHEXOL 350 MG/ML 100 ML (OMNIPAQUE 350) VIAL IV ONE; -NS 100 ML (IVPB) BAG IV ONE
--- NOTE | 2020-02-27 11:43 | Diagnostic Imaging Report ---
INDICATION: 70-year-old postmenopausal female. COMPARISON: 10/28/2017 FINDINGS: AP Spine L1-L4: [BMD (g/cm2): 1.262] [T-Score: 0.5] [Z-Score: 2.0] [BMD Previous: 1.268] [BMD % Change: -0.5] LT Hip Neck: [BMD (g/cm2): 0.727] [T-Score: -2.2] [Z-Score: -0.7] LT Hip Total: [BMD (g/cm2):0.820] [T-Score:-1.5] [Z-Score: -0.2] [BMD Previous: 0.803] [BMD % Change: 2.1] RT Hip Neck: [BMD (g/cm2):0.739] [T-Score:-2.1] [Z-Score:-0.6] RT Hip Total: [BMD (g/cm2):0.811] [T-score:-1.6] [Z-Score:-0.2] [BMD Previous:0.803] [BMD % Change:1.0] *Indicates significant change from prior examination based on 95% confidence level. World Health Organization criteria for BMD interpretation classify patients as Normal (T-score at or above -1.0), Osteopenic (T-score between -1.0 and -2.5) or Osteoporotic (T-score at or below -2.5). LIMITATIONS AND MODIFICATION: None. FRACTURE RISK (FRAX SCORE): The ten year probability of (%): Major Osteoporotic Fracture: [12.9] Hip Fracture: [3.0] IMPRESSION: 1. Osteopenia (Low bone mass). 2. No significant change in bone mineral density since prior examination. 3. See below National Osteoporosis Foundation guidelines on when to potentially initiate pharmacologic therapy. Based on the National Osteoporosis Foundation Guidelines, pharmacologic treatment should be initiated in any of the following, unless clinical conditions suggest otherwise: * Any patient with prior fragility fracture of the hip or vertebrae. A spine fracture indicates 5X risk for subsequent spine fracture and 2X risk for subsequent hip fracture. * Osteoporosis (T-score <-2.5). * Postmenopausal women and men age 50 and older with low bone mass/osteopenia (T-score between -1.0 and -2.5) by DXA and 10-year major osteoporotic fracture greater than 20% or a 10-year probability of hip fracture greater than 3%. These fracture risks are supplied above in the FRAX score, if applicable. * Clinician judgement and/or patient preferences may indicate treatment for people with 10-year fracture probabilities above or below these levels. Dictated by: Dictated on workstation # [id number]
--- NOTE | 2020-02-27 12:57 | Diagnostic Imaging Report ---
INDICATION: Routine screening. Comparison is made with prior mammogram from 11/04/2018 and 10/28/2017. 2-D and 3-D bilateral screening mammography was performed with CAD. Both breasts are heterogeneously dense, limiting the sensitivity of mammography. Biopsy marker clips in left breast are again noted. Breast parenchymal pattern appears stable. No new mass or malignant appearing microcalcifications are seen. There are benign calcifications. Axillae are unremarkable. IMPRESSION: BI-RADS Category 2 No mammographic features suspicious for malignancy are identified. ACR BI-RADS Category 2: Benign findings. Result letter will be mailed to the patient. Note: At least 10% of breast cancer is not imaged by mammography. Dictated by: Dictated on workstation # [id number]
== END ==
LOC: RAD 09:15
PROVIDERS: ATTEND Family Medicine
DX: Z12.31 Encounter for screening mammogram for malignant neoplasm of breast (principal); M81.0 Age-related osteoporosis without current pathological fracture; M85.80 Other specified disorders of bone density and structure, unspecified site; Z78.0 Asymptomatic menopausal state
CPT/HCPCS: 77063; 77067; 77080

== ENCOUNTER → 2021-02-27 | Outpatient (CLI) | payer MEDICARE ==
--- NOTE | 2021-02-27 12:39 | Diagnostic Imaging Report ---
INDICATION: Routine screening. COMPARISON: 02/27/2020 and 11/04/2018. TECHNIQUE: 2D and 3D bilateral screening mammography was performed with CAD. FINDINGS: Both breasts are heterogeneously dense, limiting the sensitivity of mammography. Biopsy clips in the left breast are again noted. No mass or malignant appearing microcalcifications are seen. The axillae are unremarkable. IMPRESSION: No mammographic features suspicious for malignancy are identified. ACR BI-RADS Category 2: Benign findings. Result letter will be mailed to the patient. Note: At least 10% of breast cancer is not imaged by mammography. Dictated by: Dictated on workstation # [id number]
== END ==
LOC: RAD 10:15
PROVIDERS: ATTEND Family Medicine
DX: Z12.31 Encounter for screening mammogram for malignant neoplasm of breast (principal)
CPT/HCPCS: 77063; 77067

== ENCOUNTER → 2022-03-03 | Outpatient (CLI) | payer MEDICARE ==
[~2022-03-03] MED LIST changes: +NF-CRES10T PO; -ROSU10TA22 PO
--- NOTE | 2022-03-03 09:28 | Diagnostic Imaging Report ---
INDICATION: Postmenopausal state COMPARISON: 02/27/2020 FINDINGS: AP Spine L1-L4: [BMD (g/cm2): 1.237] [T-Score: 0.3] [Z-Score: 2.2] [BMD Previous: 1.262] [BMD % Change: -2.0] LT Hip Neck: [BMD (g/cm2): 0.729] [T-Score: -2.2] [Z-Score: -0.3] LT Hip Total: [BMD (g/cm2):0.790] [T-Score:-1.7] [Z-Score: 0.0] [BMD Previous: 0.820] [BMD % Change: -3.7] RT Hip Neck: [BMD (g/cm2):0.699] [T-Score:-2.4] [Z-Score:-0.5] RT Hip Total: [BMD (g/cm2):0.771] [T-score:-1.9] [Z-Score:-0.2] [BMD Previous:0.811] [BMD % Change:-4.9]* *Indicates significant change from prior examination based on 95% confidence level. World Health Organization criteria for BMD interpretation classify patients as Normal (T-score at or above -1.0), Osteopenic (T-score between -1.0 and -2.5) or Osteoporotic (T-score at or below -2.5). LIMITATIONS AND MODIFICATION: None. FRACTURE RISK (FRAX SCORE): The ten year probability of (%): Major Osteoporotic Fracture: [13.6] Hip Fracture: [3.9] IMPRESSION: 1. Osteopenia (Low bone mass). 2. Bone mineral density within the right hip has significantly decreased since the prior examination. Bone mineral density within the lumbar spine has not significantly changed since the prior exam. 3. See below National Osteoporosis Foundation guidelines on when to potentially initiate pharmacologic therapy. Based on the National Osteoporosis Foundation Guidelines, pharmacologic treatment should be initiated in any of the following, unless clinical conditions suggest otherwise: * Any patient with prior fragility fracture of the hip or vertebrae. A spine fracture indicates 5X risk for subsequent spine fracture and 2X risk for subsequent hip fracture. * Osteoporosis (T-score <-2.5). * Postmenopausal women and men age 50 and older with low bone mass/osteopenia (T-score between -1.0 and -2.5) by DXA and 10-year major osteoporotic fracture greater than 20% or a 10-year probability of hip fracture greater than 3%. These fracture risks are supplied above in the FRAX score, if applicable. * Clinician judgement and/or patient preferences may indicate treatment for people with 10-year fracture probabilities above or below these levels. Dictated by: Dictated on workstation # [id number]
--- NOTE | 2022-03-03 12:34 | Diagnostic Imaging Report ---
INDICATION: Routine screening. COMPARISON: 02/27/2021 and 02/27/2020. TECHNIQUE: 2D and 3D bilateral screening mammography was performed with CAD. FINDINGS: Both breasts are heterogeneously dense, limiting the sensitivity of mammography. A biopsy clip in the left breast is again noted. There are benign calcifications bilaterally. No new mass or malignant-appearing microcalcifications are seen. The axillae are unremarkable. IMPRESSION: No mammographic features suspicious for malignancy are identified. ACR BI-RADS Category 2: Benign findings. Result letter will be mailed to the patient. Note: At least 10% of breast cancer is not imaged by mammography. Dictated by: Dictated on workstation # [id number]
== END ==
LOC: RAD 08:45
PROVIDERS: ATTEND Family Medicine
DX: Z12.31 Encounter for screening mammogram for malignant neoplasm of breast (principal); M85.89 Other specified disorders of bone density and structure, multiple sites; Z78.0 Asymptomatic menopausal state
CPT/HCPCS: 77063; 77067; 77080

== ENCOUNTER 2022-03-10 05:41 | Outpatient (CLI) | payer MEDICARE ==
[~2022-03-10] VITALS: Ht 170.1 cm; Wt 60.0 kg
[2022-03-10] MEDS ORDERED: VITAMIN D3 (13:16)
== END 2022-03-10 13:28 ==
LOC: PREOP 05:41
PROVIDERS: ATTEND Specialist
DX: Z01.818 Encounter for other preprocedural examination (principal)

== ENCOUNTER 2022-03-13 10:12 | Day surgery (SDC) | payer MEDICARE ==
[~2022-03-13] VITALS: Ht 170.1 cm; Wt 60.0 kg
[~2022-03-13 10:12] MED LIST changes: +VITAMIN D3
[2022-03-13] MEDS ORDERED: MIDAZOLAM 2 MG/2 ML (VERSED) VIAL ONE (10:25)
[2022-03-13] MEDS: TETRACAINE 0.5% OPHTH SOLN 4 ML BTL (SINGLE DOSE ONLY) OU PRN ×4 (10:54→11:13)
[2022-03-13 10:59] VITALS: BP 138/74
[2022-03-13] MEDS ORDERED: TIMOLOL MALEATE 0.5% 5 ML (TIMOPTIC) BTL OU PRN (11:00)
[2022-03-13] MEDS ORDERED: MOXIFLOXACIN OPHTH SOLN 5 MG/ML 0.3 ML SYRINGE OP ONE (11:00)
[2022-03-13] MEDS ORDERED: POVIDONE (BETADINE) OPHTH SOLN 5% 30 ML OP ONE (11:00)
[2022-03-13] MEDS: TROPICAMIDE 1% OPH SOLN (MYDRIACYL) 15 ML BTL OP SCH ×3 (11:02→11:13)
[2022-03-13] MEDS: PHENYLEPHRINE 10% OPHTH (NEO-SYN) 5 ML BTL OU SCH ×3 (11:02→11:13)
--- NOTE | 2022-03-13 11:38 | Ophthalmologist Pre-Op Note ---
Pre-Operative Progress Note H&P Reviewed The H&P was reviewed, patient examined and no changes noted. Date H&P Reviewed: Mar 13, 2022 Time H&P Reviewed: 11:38 Pre-Op Dx Cataract, Right Eye FIDE KING MD Mar 13, 2022 11:38
--- NOTE | 2022-03-13 11:58 | Ophthalmology Operative Report ---
Cataract removal/placement IOL PREOPERATIVE DIAGNOSIS: Cataract Right Eye POSTOPERATIVE DIAGNOSIS: Cataract Right Eye PROCEDURE: Cataract removal and placement of posterior chamber implant, right eye SURGEON: Avtar King ANESTHESIA: Topical with sedation COMPLICATIONS: None ESTIMATED BLOOD LOSS: Minimal DESCRIPTION OF PROCEDURE: After proper informed consent was obtained, the patient, a 72 female, was taken to the Operating Room and the right eye was anesthetized with tetracaine. The right eye was then prepped and draped in the usual manner. A wire lid speculum was placed. A paracentesis was made at the left hand position. Preservative free lidocaine was injected into the anterior chamber followed by viscoelastic. A clear corneal incision was made in the temporal position. A capsulorrhexis was preformed and the central nuclear and cortical material were removed. The posterior capsule was polished and Alekesy 14.0 AU00T0 IOL was placed into the capsular bag. The residual viscoelastic was aspirated and balanced saline solution was injected into the anterior chamber. Moxifloxacin was injected into the anterior chamber. The wound was checked and found to be water tight. The patient tolerated the procedure well without complications. AVTAR KING MD Mar 13, 2022 11:58
[2022-03-13 12:02] VITALS: BP 147/68
[2022-03-13] MEDS ORDERED: acetaZOLAMIDE ER 500 MG CAP (DIAMOX SEQUELS) PO ONE (13:15)
--- NOTE | 2022-03-13 14:52 | Anesthesia-General Post-Op ---
MAC Patient Condition Mental Status/LOC: Same as Preop Cardiovascular: Satisfactory Nausea/Vomiting: Absent Respiratory: Satisfactory Pain: Controlled Complications: Absent Post Op Complications Complications None Follow Up Care/Instructions Patient Instructions None needed. Anesthesiology Discharge Order Discharge Order Patient is doing well, no complaints, stable vital signs, no apparent adverse anesthesia problems. No complications reported per nursing. FAN RIOS CRNA Mar 13, 2022 14:52
== END 2022-03-13 12:02 ==
LOC: SDC 10:12
PROVIDERS: ATTEND Specialist
DX: H25.11 Age-related nuclear cataract, right eye (principal)
CPT/HCPCS: 66984; V2632

== ENCOUNTER 2022-03-19 06:05 | Outpatient (CLI) | payer MEDICARE ==
[2022-03-23] MEDS ORDERED: CALC-694 PO (11:42)
[2022-03-23] MEDS ORDERED: CHOL200025 PO (11:42)
[2022-03-23] MEDS ORDERED: ASPI-999 PO (11:42)
[2022-03-23] MEDS ORDERED: CARV3.122 PO (11:42)
[2022-03-23] MEDS ORDERED: FISH1CAP15 PO (11:42)
== END 2022-03-23 11:46 ==
LOC: PREOP 06:05
PROVIDERS: ATTEND Specialist
DX: Z01.818 Encounter for other preprocedural examination (principal); H26.9 Unspecified cataract

== ENCOUNTER 2022-03-27 09:01 | Day surgery (SDC) | payer MEDICARE ==
[~2022-03-27] VITALS: Ht 170 cm; Wt 60.0 kg
[~2022-03-27 09:01] MED LIST changes: +ASPI-999 PO; +CALC-694 PO; +CARV3.122 PO; +CHOL200025 PO
[2022-03-27] MEDS: TETRACAINE 0.5% OPHTH SOLN 4 ML BTL (SINGLE DOSE ONLY) OU PRN ×4 (09:13→09:29)
[2022-03-27] MEDS ORDERED: POVIDONE (BETADINE) OPHTH SOLN 5% 30 ML OP ONE (09:15)
[2022-03-27] MEDS ORDERED: TIMOLOL MALEATE 0.5% 5 ML (TIMOPTIC) BTL OU PRN (09:15)
[2022-03-27] MEDS ORDERED: MOXIFLOXACIN OPHTH SOLN 5 MG/ML 0.3 ML SYRINGE OP ONE (09:15)
[2022-03-27] MEDS: PHENYLEPHRINE 10% OPHTH (NEO-SYN) 5 ML BTL OU SCH ×3 (09:19→09:29)
[2022-03-27] MEDS: TROPICAMIDE 1% OPH SOLN (MYDRIACYL) 15 ML BTL OP SCH ×3 (09:19→09:29)
[2022-03-27 09:26] VITALS: BP 137/75
--- NOTE | 2022-03-27 09:53 | Ophthalmologist Pre-Op Note ---
Pre-Operative Progress Note H&P Reviewed The H&P was reviewed, patient examined and no changes noted. Date H&P Reviewed: Mar 27, 2022 Time H&P Reviewed: 09:53 Pre-Op Dx Cataract, Left Eye FIDE KING MD Mar 27, 2022 09:53
[2022-03-27] MEDS ORDERED: MIDAZOLAM 2 MG/2 ML (VERSED) VIAL ONE (09:59)
--- NOTE | 2022-03-27 10:18 | Ophthalmology Operative Report ---
Cataract removal/placement IOL PREOPERATIVE DIAGNOSIS: Cataract Left Eye POSTOPERATIVE DIAGNOSIS: Cataract Left Eye PROCEDURE: Cataract removal and placement of posterior chamber implant, left eye SURGEON: Avtar King ANESTHESIA: Topical with sedation COMPLICATIONS: None ESTIMATED BLOOD LOSS: Minimal DESCRIPTION OF PROCEDURE: After proper informed consent was obtained, the patient, a 72 female, was taken to the Operating Room and the left eye was anesthetized with tetracaine. The left eye was then prepped and draped in the usual manner. A wire lid speculum was placed. A paracentesis was made at the left hand position. Preservative free lidocaine was injected into the anterior chamber followed by viscoelastic. A clear corneal incision was made in the temporal position. A capsulorrhexis was preformed and the central nuclear and cortical material were removed. The posterior capsule was polished and an Aleksey 14.0 AU00T0 was placed into the capsular bag. The residual viscoelastic was aspirated and balanced saline solution was injected into the anterior chamber. Moxifloxacin was injected into the anterior chamber. The wound was checked and found to be water tight. The patient tolerated the procedure well without complications. AVTAR KING MD Mar 27, 2022 10:18
[2022-03-27 10:25] VITALS: BP 138/71
[2022-03-27] MEDS ORDERED: acetaZOLAMIDE ER 500 MG CAP (DIAMOX SEQUELS) PO ONE (10:30)
--- NOTE | 2022-03-27 12:44 | Anesthesia-General Post-Op ---
MAC Patient Condition Mental Status/LOC: Same as Preop Cardiovascular: Satisfactory Nausea/Vomiting: Absent Respiratory: Satisfactory Pain: Controlled Complications: Absent Post Op Complications Complications None Follow Up Care/Instructions Patient Instructions None needed. Anesthesiology Discharge Order Discharge Order Patient is doing well, no complaints, stable vital signs, no apparent adverse anesthesia problems. No complications reported per nursing. RA RUELAS CRNA Mar 27, 2022 12:44
== END 2022-03-27 10:27 | disposition home or self-care (01) ==
LOC: SDC 09:01
PROVIDERS: ATTEND Specialist
DX: H25.9 Unspecified age-related cataract (principal); Z79.82 Long term (current) use of aspirin
CPT/HCPCS: 66984; V2632

== ENCOUNTER → 2023-03-08 | Outpatient (CLI) | payer MEDICARE ==
[~2023-03-08] MED LIST changes: -ALEN70TA2 PO; +ALEN70TA85 PO
--- NOTE | 2023-03-08 09:58 | Diagnostic Imaging Report ---
Indication: Routine screening. Comparison is made with prior mammogram 03/03/2022 and 12/12/2020. 2-D and 3-D bilateral screening mammography was performed with CAD. The current study was also evaluated with a Computer Aided Detection (CAD) system. Both breasts are heterogeneously dense, limiting the sensitivity of mammography. Biopsy changes in the left breast are again noted. Overall parenchymal pattern is stable. No new mass or malignant-appearing microcalcifications are seen. There are benign calcifications bilaterally. Axillae are unremarkable. IMPRESSION: BI-RADS Category 2 No mammographic features suspicious for malignancy are identified. ACR BI-RADS Category 2: Benign findings. Result letter will be mailed to the patient. Note: At least 10% of breast cancer is not imaged by mammography. Dictated by: Dictated on workstation # [id number]
== END ==
LOC: RAD 07:06
PROVIDERS: ATTEND Family Medicine
DX: Z12.31 Encounter for screening mammogram for malignant neoplasm of breast (principal)
CPT/HCPCS: 77063; 77067

== ENCOUNTER → 2023-03-23 | Outpatient (CLI) | payer MEDICARE | LOC: CARD 09:08 | PROVIDERS: ATTEND Internal Medicine Cardiovascular Disease | DX: I08.0 Rheumatic disorders of both mitral and aortic valves (principal); I11.9 Hypertensive heart disease without heart failure | CPT/HCPCS: 93306 ==